=== PATIENT | female | born 1970 | race Caucasian/White ===

== ENCOUNTER 2021-04-10 23:52 | Emergency (ER) | payer MEDICAID ==
[~2021-04-10] VITALS: Ht 157.5 cm; Wt 73.9 kg
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
--- NOTE | 2021-04-11 00:50 | NUR ---
DR. MACEDO AT BEDSIDE, MSE IN PROGRESS.
[2021-04-11 01:22] LABS: MEAN CORPUSCULAR HEMOGLOBIN 28.9 uug (24.7-32.8); MEAN CORPUSCULAR VOLUME 85.6 fL (75.5-95.3); PLATELET COUNT (AUTO) 381 K/uL (179-408)
[2021-04-11 01:26] LABS: CREATININE 0.8 mg/dL (0.6-1.3); POTASSIUM 4.1 mmol/L (3.5-5.1)
[2021-04-11] MEDS ORDERED: LIDOCAINE 5% PATCH TD ONE ×2 (01:30→01:33)
[2021-04-11] MEDS ORDERED: diphenhydrAMINE 50 MG/1 ML VIAL IM ONE (01:30)
[2021-04-11 01:32] LABS: BILIRUBIN,DIRECT 0.1 mg/dL (0.0-0.2); BILIRUBIN,TOTAL 0.2 mg/dL (0.2-1.0); TOTAL PROTEIN, SERUM 8.6 g/dL (6.4-8.2)
[2021-04-11] MEDS ORDERED: diphenhydrAMINE 50 MG/1 ML VIAL ONE (01:38)
--- NOTE | 2021-04-11 02:10 | NUR ---
PT RESTING IN BED, NOTED TO BE USING HER CELLPHONE.
[2021-04-11] MEDS ORDERED: DEXAMETHASONE SOD PHOSPHATE 10 MG INJ ONE (02:57)
[2021-04-11] MEDS ORDERED: LIDO120C10 TP (02:58)
[2021-04-11] MEDS ORDERED: DIPH25TA62 PO (02:58)
[2021-04-11] MEDS ORDERED: DEXAMETHASONE SOD PHOSPHATE 4 MG INJ IM ONE (03:00)
--- NOTE | 2021-04-11 03:15 | NUR ---
Patient discharged to home in stable condition. Written and verbal after care instructions given. Patient verbalizes understanding of instructions. Stressed follow up or return to ER for worsening s/s. Steady gait. Picked up by personal car.
[2021-04-11 03:16] VITALS: BP 120/76
[2021-04-11] MEDS ORDERED: DIPH25CA83 PO (03:20)
[2021-04-11] MEDS ORDERED: HYDR50TA62 PO (03:20)
== END 2021-04-11 03:16 | disposition home or self-care (01) ==
LOC: ER 04-11 00:07
DX: L29.9 Pruritus, unspecified (principal); F17.210 Nicotine dependence, cigarettes, uncomplicated
CPT/HCPCS: 36415; 80048; 80076; 85025; 96372 ×2; 99284; J1100; J1200; A4663